=== PATIENT | male | born 1935 | race Caucasian/White ===

== ENCOUNTER 2017-02-15 01:58 | Emergency (ER) | payer MEDICARE ==
[~2017-02-15] VITALS: Ht 165.1 cm; Wt 70.0 kg
[~2017-02-15 01:58] MED LIST: GREEPOW2 PO
[2017-02-15 02:26] VITALS: BP 161/71; PULSE 61; RESP 18; TEMP 98.9; O2SAT 95
[2017-02-15 03:40] VITALS: BP 164/68; PULSE 58; RESP 17; O2SAT 98
[2017-02-15] MEDS ORDERED: AMLO10TA2 PO (03:50)
[2017-02-15] MEDS ORDERED: LABE200T2 PO (03:50)
[2017-02-15] MEDS ORDERED: FINA5TAB2 PO (03:50)
[2017-02-15] MEDS ORDERED: OMEP20TA PO (03:54)
[2017-02-15] MEDS ORDERED: METH250T PO (03:54)
[2017-02-15] MEDS ORDERED: SODI15SU (03:54)
[2017-02-15] MEDS ORDERED: LOSA100T PO (03:54)
[2017-02-15] MEDS ORDERED: TERA10CA3 PO (03:54)
[2017-02-15] MEDS ORDERED: SODIUM CHLORIDE 0.9% FLUSH 10 ML FLUSH IVF PRN (04:00)
--- NOTE | 2017-02-15 04:21 | PD ---
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 He states it hurts with movements. He denies any shortness of breath, coughing, fevers, vomiting, or any other symptoms. 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) Reproductive: No Respiratory: No Thyroid Disease: No Tetanus Vaccination: Unknown Influenza Vaccination: Yes Past Surgical History AICD: No Genitourinary Surgery: Yes (PROSTATE TURP 1997, HYDROCELE,RENAL CA R NEPHRECTOMY 08/2012) Joint Replacement: No Pacemaker: No Other Surgery: Yes (PROSTATE SURGERY, [employer] REMOVED, CYST REMOVED ON BUTTOCKS/ PILONIDAL CYST) Family History Family Myocardial Infarction: Yes (MOTHER) Social History Alcohol Use: Yes (DAILY TO EVERY OTHER DAY MIX DRINKS AND BEER) Tobacco Use: No Substance Use: No Allergies-Medications (Allergen,Severity, Reaction): Coded Allergies: penicillin G (Unverified Allergy, Severe, HIVES, 02/04/17) ONLY EXCESSIVE AMOUNTS strawberry (Unverified Allergy, Severe, HIVES, 02/04/17) ONLY EXCESSIVE AMOUNTS Reported Meds & Prescriptions Reported Meds & Active Scripts Active Reported Sodium Polystyrene Sulfon (Sodium Polystyrene Sulfonate) 15 Gm/60 Ml Elena Terazosin (Terazosin HCl) 10 Mg Cap 10 Mg PO HS Omeprazole 20 Mg Tab 20 Mg PO DAILY Methyldopa 250 Mg Tab 250 Mg PO BID Losartan (Losartan Potassium) 100 Mg Tab 100 Mg PO DAILY Labetalol (Labetalol HCl) 200 Mg Tab 200 Mg PO BID Finasteride 5 Mg Tab 200 Mg PO DAILY Do not crush. Amlodipine (Amlodipine Besylate) 10 Mg Tab 10 Mg PO DAILY [Green Tea] 1 Cap PO DAILY Review of Systems Except as stated in HPI: all other systems reviewed are Neg Physical Exam Narrative GENERAL: Well-developed elderly white male patient currently in mild distress. Awake and oriented 3. SKIN: Focused skin assessment warm/dry. HEAD: Atraumatic. Normocephalic. EYES: Pupils equal and round. No scleral icterus. No injection or drainage. ENT: No nasal bleeding or discharge. Mucous membranes pink and moist. NECK: Trachea midline. No JVD. CARDIOVASCULAR: Regular rate and rhythm. No murmur appreciated. Pulses are present and equal bilaterally. RESPIRATORY: No accessory muscle use. Clear to auscultation. Breath sounds equal bilaterally. GASTROINTESTINAL: Abdomen soft, non-tender, nondistended. Hepatic and splenic margins not palpable. MUSCULOSKELETAL: No obvious deformities. No clubbing. No cyanosis. No edema. NEUROLOGICAL: Awake and alert. No obvious cranial nerve deficits. Motor grossly within normal limits. Normal speech. PSYCHIATRIC: Appropriate mood and affect; insight and judgment normal. Data Data Last Documented VS Vital Signs Date Time Temp Pulse Resp B/P (MAP) Pulse Ox O2 Delivery O2 Flow Rate FiO2 02/15/17 04:00 100 Room Air 02/15/17 03:40 58 17 164/68 (100) 02/15/17 02:26 98.9 Orders Orders Electrocardiogram (02/15/17 03:48) Basic Metabolic Panel (Bmp) (02/15/17 03:48) Ckmb (Isoenzyme) Profile (02/15/17 03:48) Complete Blood Count With Diff (02/15/17 03:48) Magnesium (Mg) (02/15/17 03:48) Prothrombin Time / Inr (Pt) (02/15/17 03:48) Act Partial Throm Time (Ptt) (02/15/17 03:48) Troponin I (02/15/17 03:48) Chest, Single Ap (02/15/17 03:48) Ecg Monitoring (02/15/17 03:48) Bilateral Bp Monitoring (02/15/17 03:48) Iv Access Insert/Monitor (02/15/17 03:48) Oximetry (02/15/17 03:48) Oxygen Administration (02/15/17 03:48) Sodium Chloride 0.9% Flush (Ns Flush) (02/15/17 04:00) D-Dimer (02/15/17 04:10) CKMB (02/15/17 04:10) CKMB% (02/15/17 04:10) Labs Laboratory Tests Test 02/15/17 04:10 White Blood Count 7.6 TH/MM3 Red Blood Count 3.99 MIL/MM3 Hemoglobin 12.1 GM/DL Hematocrit 37.5 % Mean Corpuscular Volume 93.9 FL Mean Corpuscular Hemoglobin 30.2 PG Mean Corpuscular Hemoglobin Concent 32.2 % Red Cell Distribution Width 13.2 % Platelet Count 178 TH/MM3 Mean Platelet Volume 7.9 FL Neutrophils (%) (Auto) 55.8 % Lymphocytes (%) (Auto) 34.5 % Monocytes (%) (Auto) 8.3 % Eosinophils (%) (Auto) 1.2 % Basophils (%) (Auto) 0.2 % Neutrophils # (Auto) 4.2 TH/MM3 Lymphocytes # (Auto) 2.6 TH/MM3 Monocytes # (Auto) 0.6 TH/MM3 Eosinophils # (Auto) 0.1 TH/MM3 Basophils # (Auto) 0.0 TH/MM3 CBC Comment DIFF FINAL Differential Comment Prothrombin Time 11.2 SEC Prothromb Time International Ratio 1.0 RATIO Activated Partial Thromboplast Time 25.7 SEC D-Dimer Quantitative (PE/DVT) 0.59 MG/L FEU Blood Urea Nitrogen 37 MG/DL Creatinine 2.32 MG/DL Random Glucose 105 MG/DL Calcium Level 8.4 MG/DL Magnesium Level 2.4 MG/DL Sodium Level 141 MEQ/L Potassium Level 4.2 MEQ/L Chloride Level 106 MEQ/L Carbon Dioxide Level 24.9 MEQ/L Anion Gap 10 MEQ/L Estimat Glomerular Filtration Rate 27 ML/MIN Total Creatine Kinase 214 U/L Creatine Kinase MB 2.1 NG/ML Troponin I LESS THAN 0.02 NG/ML MDM Medical Decision Making Medical Screen Exam Complete: Yes Emergency Medical Condition: Yes Medical Record Reviewed: Yes Interpretation(s) EKG shows sinus bradycardia rate of 55 beats per minute, no ST elevation or depression, and no arrhythmias. No significant T-wave inversions. Laboratory Tests Test 02/15/17 04:10 Red Blood Count 3.99 MIL/MM3 (4.50-5.90) Hemoglobin 12.1 GM/DL (13.0-17.0) Hematocrit 37.5 % (39.0-51.0) Monocytes (%) (Auto) 8.3 % (0.0-8.0) D-Dimer Quantitative (PE/DVT) 0.59 MG/L FEU (0.00-0.50) Blood Urea Nitrogen 37 MG/DL (7-18) Creatinine 2.32 MG/DL (0.60-1.30) Calcium Level 8.4 MG/DL (8.5-10.1) Estimat Glomerular Filtration Rate 27 ML/MIN (>89) Troponin I LESS THAN 0.02 NG/ML Last 24 hours Impressions Chest X-Ray 02/15/17 0348 Signed Impressions: Service Date/Time: Friday, February 15, 2017 04:05 - CONCLUSION: Normal examination. Chato Robert MD Differential Diagnosis Right sided chest pains: Costochondritis versus pneumonia versus ACS Narrative Course Chest x-ray did not show any signs of acute processes and EKG was unremarkable for any significant ST changes. Patient is mildly bradycardic by do not think that this is not bradycardia would be causing his symptoms. Symptoms are fairly atypical and more indicative of a muscular issue or costochondritis with chest wall pain. His d-dimer is 0.59 which to me essentially is negative. Patient is not currently short of breath. At this point, I have offered to admit the patient to chest pain center should he want further follow-up. However, he states that his braider operator is Dr. Walker and he would rather follow-up as an outpatient with him. He should return for any worsening in symptoms as needed. The plan has been discussed with him and he prefers outpatient evaluation. He also understands that underlying cardiac processes cannot be ruled out without further testing which she states he will obtain as an outpatient. Diagnosis Primary Impression: Atypical chest pain Disposition: 01 DISCHARGE HOME Condition: Stable Dianna Linder MD Feb 15, 2017 04:21
--- NOTE | 2017-02-15 04:51 | RADRPT ---
EXAM DATE/TIME: 02/15/2017 04:05 [facility] COMPARISON: No previous studies available for comparison. INDICATIONS : Chest pain and weakness MEDICAL HISTORY : None. SURGICAL HISTORY : None. ENCOUNTER: Initial ACUITY: 1 day PAIN SCORE: 7/10 LOCATION: Bilateral chest FINDINGS: A single view of the chest demonstrates the lungs to be symmetrically aerated without evidence of mas s, infiltrate or effusion. The cardiomediastinal contours are unremarkable. Osseous structures are intact. CONCLUSION: Normal examination. Chato Robert MD on February 15, 2017 at 4:49 Board Certified Radiologist. This report was verified electronically.
[2017-02-15 04:56] LABS: AUTOMATED NEUTROPHIL # 4.2 TH/MM3 (1.8-7.7); BASOPHIL % 0.2 % (0.0-2.0); EOSINOPHIL # 0.1 TH/MM3 (0-0.4); EOSINOPHIL % 1.2 % (0.0-4.0); HEMATOCRIT 37.5 % (39.0-51.0); HEMO FLAGS DIFF FINAL; LYMPH % 34.5 % (9.0-44.0); LYMPHOCYTE # 2.6 TH/MM3 (1.0-4.8); MEAN CELL VOLUME 93.9 FL (80.0-100.0); MEAN CORPUSCULAR HEMOGLOBIN 30.2 PG (27.0-34.0); MEAN CORPUSCULAR HGB CONC 32.2 % (32.0-36.0); MONO % 8.3 % (0.0-8.0); NEUT % 55.8 % (16.0-70.0); PLATELET COUNT 178 TH/MM3 (150-450); RED BLOOD COUNT 3.99 MIL/MM3 (4.50-5.90); RED CELL DISTRIBUTION WIDTH 13.2 % (11.6-17.2); WHITE BLOOD COUNT 7.6 TH/MM3 (4.0-11.0)
[2017-02-15 05:13] LABS: APTT (PATIENT) 25.7 SEC (24.3-30.1); PROTHROMBIN TIME - PATIENT 11.2 SEC (9.8-11.6)
[2017-02-15 05:14] LABS: ANION GAP 10 MEQ/L (5-15); BICARBONATE 24.9 MEQ/L (21.0-32.0); BLOOD UREA NITROGEN 37 MG/DL (7-18); CHLORIDE 106 MEQ/L (98-107); GLOMERULAR FILTRATION RATE 27 ML/MIN (>89); MAGNESIUM 2.4 MG/DL (1.5-2.5); POTASSIUM 4.2 MEQ/L (3.5-5.1); SODIUM (NA) 141 MEQ/L (136-145)
[2017-02-15 05:18] LABS: CREATINE KINASE 214 U/L (39-308)
[2017-02-15 05:36] LABS: CKMB 2.1 NG/ML (0.5-3.6)
[2017-02-15 06:06] VITALS: BP 165/72; PULSE 55; RESP 20; O2SAT 97
--- NOTE | 2017-02-15 15:50 | EKG ---
Date Performed: 02/15/2017 Time Performed: 03:59:55 PTAGE: 81 years EKG: SINUS BRADYCARDIA BORDERLINE ECG PREVIOUS TRACING : 06/17/2011 15.05 Compared to prior tracing no significant change DOCTOR: Malini Murphy Interpretating Date/Time 02/15/2017 15:48:51
== END 2017-02-15 06:38 | disposition home or self-care (01) ==
LOC: NEPE 01:58
DX: R07.89 Other chest pain (principal); I10 Essential (primary) hypertension; R00.1 Bradycardia, unspecified; R94.31 Abnormal electrocardiogram [ECG] [EKG]; Z85.528 Personal history of other malignant neoplasm of kidney; Z86.79 Personal history of other diseases of the circulatory system; Z87.19 Personal history of other diseases of the digestive system
CPT/HCPCS: 71010; 80048; 82550; 82552; 83735; 84484; 85025; 85379; 85610; 85730; 93005; 99285